=== PATIENT | male | born 2000 | race Caucasian/White ===

== ENCOUNTER 2020-03-17 14:40 | Emergency (ER) | payer OTHER ==
[~2020-03-17] VITALS: Ht 188 cm; Wt 161.4 kg
--- NOTE | 2020-03-17 15:21 | NUR ---
PT BIB GF. "IM HAVING SUICIDAL THOUGHTS. KAL HAD THEM SINCE I WAS 6. ITS BEEN WORSE THE PAST 2 DAYS". ALL PT BELONGINGS REMOVED AND PUT IN LOCKED LOCKER, SUICIDE PRECAUTIONS IN PLACE. PT'S GF AT BS, TANYA AT THIS TIME. LAB ALSO AT BS TO DRAW BLOOD.
[2020-03-17 15:34] LABS: ALBUMIN 3.9 g/dL (3.4-5.0); ANION GAP 4 mmol/L (5-15); CALCIUM 9.2 mg/dL (8.5-10.1); CHLORIDE 106 mmol/L (98-107)
[2020-03-17 15:38] LABS: ALANINE AMINOTRANSFERASE 41 U/L (12-78); ALKALINE PHOSPHATASE 87 U/L (45-117); BILIRUBIN,TOTAL 0.4 mg/dL (0.2-1.0); TOTAL PROTEIN 8.3 g/dL (6.4-8.2)
[2020-03-17 15:40] LABS: SALICYLATE LEVEL < 1.7 mg/dL (2.8-20.0)
[2020-03-17 15:55] LABS: BASOPHILS % (AUTO) 1 % (0-1); EOSINOPHILS % (AUTO) 2 % (1-7); LYMPHOCYTES % (AUTO) 27 % (22-44); MEAN CORPUSCULAR HEMOGLOBIN 27.8 pg (27.5-34.5); MEAN CORPUSCULAR HGB CONC 33.5 g/dL (33.2-36.2); MEAN PLATELET VOLUME 8.6 fL (7.4-10.4); MONOCYTES % (AUTO) 8 % (2-9); NEUTROPHILS % (AUTO) 63 % (42-75); PLATELET COUNT 277 x10^3/uL (130-400); RED BLOOD COUNT 5.39 x10^6/uL (4.38-5.82)
[2020-03-17 15:56] LABS: MD NO
--- NOTE | 2020-03-17 16:20 | NUR ---
URINE SPECIMEN COLLECTED AND SENT TO LAB.
[2020-03-17 16:27] VITALS: BP 123/67
--- NOTE | 2020-03-17 16:35 | NUR ---
PT RESTING IN [place] AT THIS TIME, PER PT NO NEEDS, MONITORING IN PLACE, WCTM. PT'S GF AT BEDSIDE.
[2020-03-17 16:50] LABS: AMPHETAMINE SCREEN, URINE Negative (Negative); BARBITURATE SCREEN, URINE Negative (Negative); BENZODIAZEPINE SCREEN, URINE Negative (Negative); CANNABINOID SCREEN, URINE Positive (Negative); COCAINE SCREEN, URINE Negative (Negative); METHADONE SCREEN, URINE Negative (Negative); OPIATE SCREEN, URINE Negative (Negative)
--- NOTE | 2020-03-17 17:00 | NUR ---
PT GIVEN DISCHARGE INSTRUCTIONS AND EDUCATION. PT TO HAVE FAMILY DRIVE HIM POV TO [facility].
== END 2020-03-17 17:03 | disposition home or self-care (01) ==
LOC: ED 16:57
DX: F32.9 Major depressive disorder, single episode, unspecified (principal); R45.851 Suicidal ideations
CPT/HCPCS: 36415; 80053; 80299; 80307; 80320; 80329; 85025; 99283; 99284; G0480